=== PATIENT | male | born 1945 | race Caucasian/White ===

== ENCOUNTER 2023-06-04 12:37 | Inpatient (IN) ==
[2023-06-04 13:29] LABS: Albumin 3.2 g/dL (3.2-5.2); Albumin/Globulin Ratio 1.4 (1-3); Calcium 8.5 mg/dL (8.6-10.3); Creatinine, Serum 2.12 mg/dL (0.67-1.17); Globulin 2.3 g/dL (2-4); Potassium 4.4 mmol/L (3.5-5.0); Total Bilirubin 1.3 mg/dL (0.2-1.0); Total Protein 5.5 g/dL (6.4-8.9); eGFR CKD-EPI 31.3 (>60)
[2023-06-04 13:36] LABS: Hematocrit 16.5 % (38-53); Hemoglobin 5.8 g/dL (13.2-16.3); Mean Corpuscular Hemoglobin 31.7 pg (27-33); Mean Corpuscular Hgb Conc 35.2 g/dL (31-36); Mean Corpuscular Volume 90.1 fL (80-97); Mean Platelet Volume 9.8 fL (7.5-11.2); Platelet Count 61 10^3/uL (150-450); Red Blood Count 1.83 10^6/uL (4.06-5.63); Red Cell Distribution Width 19.7 % (12-17); White Blood Count 3.4 10^3/uL (3.6-10.2)
[2023-06-04 13:51] LABS: Urine Appearance Clear; Urine Bilirubin Negative (Negative); Urine Blood Negative (Negative); Urine Color Yellow; Urine Glucose Negative (Negative); Urine Ketones Negative (Negative); Urine Nitrite Negative (Negative); Urine Protein 1+(30 mg/dL) (Negative); Urine Specific Gravity 1.013 (1.002-1.030); Urine Urobilinogen Negative (Negative)
[2023-06-04 13:55] LABS: Urine Bacteria Absent (Absent); Urine Red Blood Cell Trace(0-2/hpf) (Absent); Urine Squamous Epithelial Cell Present (Absent); Urine White Blood Cell Trace(0-5/hpf) (Absent)
[2023-06-04 14:08] LABS: ABS Nucleated RBC 0.02 10^3/ul; Nucleated Red Blood Cells % 0.7 %/100WBC (0.0-0.8)
[2023-06-04 14:10] LABS: Hypochromasia 1+; Large Platelets Present; Microcytosis 1+; Polychromasia 2+; Tear Drop Cells 1+
[2023-06-04 14:47] LABS: Ferritin 3179.4 ng/mL (24-336)
[2023-06-04 15:35] LABS: ABS Neutrophils 2.6 10^3/ul (1.5-7.6)
[2023-06-04 15:36] LABS: ABS Lymphocytes 0.7 10^3/ul (1.0-4.8)
[2023-06-04] MEDS: HYDROcodone/ACETAMIN 5/325 mg TAB PO PRN (16:21)
[2023-06-04] MEDS: Furosemide 20 mg/2 ml IV VIAL IV SLOW PU ONE (18:45)
[2023-06-04] MEDS: Cefepime 2 GM in Dextrose 2 GM/50 ML BAG IV SCH ×2 (20:00→23:32)
[2023-06-04] MEDS: Acetaminophen IV 1 GM/100ML 1,000 MG/100 ML BAG IV PRN (20:42)
[2023-06-05 07:23] LABS: ALT 35 U/L (7-52); Albumin 3.4 g/dL (3.2-5.2); Albumin/Globulin Ratio 1.5 (1-3); Alkaline Phosphatase 74 U/L (35-149); Anion Gap 12 mmol/L (2-16); Blood Urea Nitrogen 44 mg/dL (6-24); CO2 Carbon Dioxide 22 mmol/L (22-32); Chloride 97 mmol/L (101-111); Creatinine, Serum 2.13 mg/dL (0.67-1.17); Globulin 2.2 g/dL (2-4); Glucose 90 mg/dL (70-100); Sodium 131 mmol/L (135-145); Total Bilirubin 1.7 mg/dL (0.2-1.0); Total Protein 5.6 g/dL (6.4-8.9); eGFR CKD-EPI 31.1 (>60)
[2023-06-05 08:56] LABS: Hematocrit 19.5 % (38-53); Hemoglobin 6.9 g/dL (13.2-16.3); Mean Corpuscular Hgb Conc 35.4 g/dL (31-36); Mean Corpuscular Volume 87.4 fL (80-97); Mean Platelet Volume 8.7 fL (7.5-11.2); Platelet Count 51 10^3/uL (150-450); Red Blood Count 2.23 10^6/uL (4.06-5.63); Red Cell Distribution Width 17.7 % (12-17); White Blood Count 8.9 10^3/uL (3.6-10.2)
[2023-06-05 09:38] LABS: ABS Lymphocytes 0.5 10^3/uL (1.0-4.8); ABS Monocytes 0.3 10^3/uL (0.0-1.1); ABS Nucleated RBC 0.03 10^3/ul; Anisocytosis 1+; Eosinophil % 0.1 %; Lymphocyte % 6.1 %; Nucleated Red Blood Cells % 0.3 %/100WBC (0.0-0.8); Polychromasia 1+
[2023-06-05 10:05] LABS: Magnesium 1.8 mg/dL (1.9-2.7); Phosphorus 4.2 mg/dL (2.5-5.0); Uric Acid 10.3 mg/dL (4.4-7.6)
[2023-06-05 10:14] LABS: Albumin 3.4 g/dL (3.2-5.2); Albumin/Globulin Ratio 1.5 (1-3); Direct Bilirubin 0.6 mg/dL (0.03-0.18); Globulin 2.2 g/dL (2-4); Indirect Bilirubin 0.9 mg/dL (0.3-1.0); Total Bilirubin 1.5 mg/dL (0.2-1.0); Total Protein 5.6 g/dL (6.4-8.9)
[2023-06-05] MEDS: Furosemide 20 mg/2 ml IV VIAL IV SLOW PU ONE ×3 (10:42→17:24)
[2023-06-05] MEDS ORDERED: Sulfur Hexaflouride MICROSPHR 25 MG VIAL ONE (10:55)
[2023-06-05 11:36] LABS: Ferritin 4395.2 ng/mL (24-336)
[2023-06-05] MEDS: Magnesium Sulfate 2 gm BAG 2 GM/50 ML BAG IVPB ONE (12:09)
[2023-06-05] MEDS: Albuterol/Ipratropium NEB.SOL (2.5/0.5 MG) 3 ML NEB.SOLN INH PRN (15:42)
[2023-06-05 15:46] LABS: PCO2 Arterial 31 mmHg (35-45); PO2 Arterial 72 mmHg (80-100)
[2023-06-05 15:46] LABS: Urine Appearance Clear; Urine Bilirubin Negative (Negative); Urine Blood Negative (Negative); Urine Color Yellow; Urine Glucose Negative (Negative); Urine Ketones Negative (Negative); Urine Nitrite Negative (Negative); Urine Protein 1+ (>=30 mg/dL) (Negative); Urine Specific Gravity 1.017 (1.002-1.030); Urine Urobilinogen Negative (Negative); Urine pH 5.5 (5.0-8.0)
[2023-06-05 15:52] LABS: Urine Bacteria Absent /HPF (Absent); Urine Red Blood Cell Trace(0-2/hpf) /HPF (0-Trace); Urine White Blood Cell Trace(0-5/hpf) /HPF (0-Trace)
[2023-06-05 15:56] LABS: Hematocrit 26.3 % (38-53); Mean Corpuscular Hemoglobin 30.2 pg (27-33); Mean Corpuscular Hgb Conc 34.2 g/dL (31-36); Mean Corpuscular Volume 88.2 fL (80-97); Mean Platelet Volume 9.3 fL (7.5-11.2); Platelet Count 79 10^3/uL (150-450); Red Blood Count 2.98 10^6/uL (4.06-5.63); Red Cell Distribution Width 16.9 % (12-17)
[2023-06-05 16:13] LABS: ALT 39 U/L (7-52); AST 58 U/L (13-39); Albumin 3.7 g/dL (3.2-5.2); Albumin/Globulin Ratio 1.5 (1-3); Alkaline Phosphatase 78 U/L (35-149); Anion Gap 10 mmol/L (2-16); Blood Urea Nitrogen 46 mg/dL (6-24); CO2 Carbon Dioxide 26 mmol/L (22-32); CRP High Sensitivity > 80.00 mg/L (<2.00); Calcium 8.4 mg/dL (8.6-10.3); Chloride 94 mmol/L (101-111); Creatinine, Serum 2.25 mg/dL (0.67-1.17); Globulin 2.5 g/dL (2-4); Glucose 94 mg/dL (70-100); Potassium 4.7 mmol/L (3.5-5.0); Sodium 130 mmol/L (135-145); Total Bilirubin 1.7 mg/dL (0.2-1.0); Total Protein 6.2 g/dL (6.4-8.9); eGFR CKD-EPI 29.1 (>60)
[2023-06-05 16:56] LABS: C Reactive Protein 131.64 mg/L (<8.01)
[2023-06-05 17:00] LABS: C Reactive Protein 150.83 mg/L (<8.01)
[2023-06-05 17:04] LABS: ABS Basophils 0.1 10^3/uL (0.0-0.1); ABS Lymphocytes 0.6 10^3/uL (1.0-4.8); ABS Monocytes 0.4 10^3/uL (0.0-1.1); ABS Neutrophils 15.9 10^3/uL (1.5-7.6); ABS Nucleated RBC 0.08 10^3/ul; Anisocytosis 1+; Lymphocyte % 3.7 %; Nucleated Red Blood Cells % 0.5 %/100WBC (0.0-0.8); Polychromasia 1+
[2023-06-05 17:27] LABS: C Reactive Protein 228.87 mg/L (<8.01)
[2023-06-06 06:59] LABS: Albumin 3.1 g/dL (3.2-5.2); Albumin/Globulin Ratio 1.4 (1-3); Calcium 7.7 mg/dL (8.6-10.3); Creatinine, Serum 2.04 mg/dL (0.67-1.17); Direct Bilirubin 0.7 mg/dL (0.03-0.18); Globulin 2.2 g/dL (2-4); Indirect Bilirubin 1.2 mg/dL (0.3-1.0); Magnesium 2.1 mg/dL (1.9-2.7); Potassium 3.9 mmol/L (3.5-5.0); Total Bilirubin 1.9 mg/dL (0.2-1.0); Total Protein 5.3 g/dL (6.4-8.9); eGFR CKD-EPI 32.7 (>60)
[2023-06-06 07:03] LABS: Hematocrit 20.4 % (38-53); Hemoglobin 7.3 g/dL (13.2-16.3); Mean Corpuscular Hemoglobin 31.1 pg (27-33); Mean Corpuscular Hgb Conc 35.5 g/dL (31-36); Mean Corpuscular Volume 87.7 fL (80-97); Red Blood Count 2.33 10^6/uL (4.06-5.63); Red Cell Distribution Width 17.3 % (12-17); White Blood Count 8.7 10^3/uL (3.6-10.2)
[2023-06-06] MEDS ORDERED: Polyethylene Glycol 3350 17 GM PACKET PO PRN (07:25)
[2023-06-06 09:13] LABS: ABS Lymphocytes 0.4 10^3/uL (1.0-4.8); ABS Monocytes 0.3 10^3/uL (0.0-1.1); ABS Nucleated RBC 0.01 10^3/ul; Lymphocyte % 4.4 %; Mean Platelet Volume 9.3 fL (7.5-11.2); Nucleated Red Blood Cells % 0.1 %/100WBC (0.0-0.8); Platelet Count 41 10^3/uL (150-450); Polychromasia 2+
[2023-06-06] MEDS: Senna TAB 8.6 mg TAB PO SCH (11:04)
[2023-06-06] MEDS: Lidocaine PATCH 4% TOPICAL SCH (11:04)
[2023-06-06] MEDS: cefTRIAXone 2 gm/50 mL D5W 2 GM/50 ML BAG IV SCH (11:07)
[2023-06-06] MEDS ORDERED: fentaNYL 100 mcg/2 ml 50 MCG/ML VIAL ONE (14:54)
[2023-06-06] MEDS ORDERED: Naloxone 0.4 mg VIAL 0.4 mg/ml 1 ml VIAL ONE (14:54)
[2023-06-06] MEDS ORDERED: Midazolam 5 mg/5 ml VIAL 1 mg/ml 5 ml VIAL (5 mg) ONE (14:54)
[2023-06-06] MEDS ORDERED: Flumazenil 0.5 mg/5 ml 0.1 MG/ML 5 ml VIAL ONE (14:54)
[2023-06-06] MEDS: Midazolam 10 mg/10 ml VIAL 1 mg/ml 10 ml VIAL (10 mg) IV SLOW PU ONE (18:30)
[2023-06-06] MEDS: fentaNYL 100 mcg/2 ml 50 MCG/ML VIAL IV SLOW PU ONE (18:30)
[2023-06-07 05:58] LABS: Calcium 7.9 mg/dL (8.6-10.3); Creatinine, Serum 1.6 mg/dL (0.67-1.17); Magnesium 2.2 mg/dL (1.9-2.7); Potassium 3.7 mmol/L (3.5-5.0); eGFR CKD-EPI 43.8 (>60)
[2023-06-07 08:24] LABS: Hematocrit 21.4 % (38-53); Hemoglobin 7.5 g/dL (13.2-16.3); Mean Corpuscular Volume 88.5 fL (80-97); Mean Platelet Volume 9.8 fL (7.5-11.2); Platelet Count 35 10^3/uL (150-450); Red Blood Count 2.41 10^6/uL (4.06-5.63); Red Cell Distribution Width 17.6 % (12-17)
[2023-06-07 08:41] LABS: ABS Lymphocytes 0.2 10^3/uL (1.0-4.8); ABS Monocytes 0.1 10^3/uL (0.0-1.1); ABS Neutrophils 7.6 10^3/uL (1.5-7.6); ABS Nucleated RBC 0.01 10^3/ul; Anisocytosis 1+; Lymphocyte % 2.9 %; Nucleated Red Blood Cells % 0.1 %/100WBC (0.0-0.8)
[2023-06-08 06:12] LABS: Hematocrit 19.6 % (38-53); Mean Corpuscular Hemoglobin 31.2 pg (27-33); Mean Corpuscular Hgb Conc 35.5 g/dL (31-36); Mean Corpuscular Volume 87.9 fL (80-97); Mean Platelet Volume 9.4 fL (7.5-11.2); Platelet Count 32 10^3/uL (150-450); Red Blood Count 2.24 10^6/uL (4.06-5.63); Red Cell Distribution Width 17.1 % (12-17); White Blood Count 5.2 10^3/uL (3.6-10.2)
[2023-06-08 06:18] LABS: Albumin/Globulin Ratio 1.3 (1-3); Calcium 7.9 mg/dL (8.6-10.3); Creatinine, Serum 1.32 mg/dL (0.67-1.17); Direct Bilirubin 0.5 mg/dL (0.03-0.18); Globulin 2.4 g/dL (2-4); Indirect Bilirubin 0.8 mg/dL (0.3-1.0); Magnesium 2.2 mg/dL (1.9-2.7); Potassium 4.1 mmol/L (3.5-5.0); Total Bilirubin 1.3 mg/dL (0.2-1.0); Total Protein 5.4 g/dL (6.4-8.9); eGFR CKD-EPI 55.2 (>60)
[2023-06-08 07:55] LABS: ABS Lymphocytes 0.3 10^3/uL (1.0-4.8); ABS Monocytes 0.1 10^3/uL (0.0-1.1); ABS Neutrophils 4.8 10^3/uL (1.5-7.6); Anisocytosis 1+; Eosinophil % 0.1 %; Lymphocyte % 5.3 %; Nucleated Red Blood Cells % 0.1 %/100WBC (0.0-0.8)
[2023-06-08 09:15] LABS: Free T3 1.74 pg/mL (2.5-3.9); Free T4 0.49 ng/dL (0.61-1.12)
[2023-06-08 09:41] LABS: TSH Ultra Thyroid Stim Horm 62.43 mcIU/mL (0.34-5.60)
[2023-06-08] MEDS: Furosemide 40 mg/4 ml IV VIAL IV SLOW PU ONE (09:55)
[2023-06-08] MEDS: LEVOTHYROXINE IV SCH (11:59)
[2023-06-08] MEDS: D5W IV SCH (11:59)
[2023-06-08] MEDS: Levothyroxine 100 MCG/5 ML VIAL IV ONE (12:50)
[2023-06-09 06:00] LABS: Hematocrit 22.8 % (38-53); Mean Corpuscular Hemoglobin 30.6 pg (27-33); Mean Corpuscular Hgb Conc 34.9 g/dL (31-36); Mean Corpuscular Volume 87.5 fL (80-97); Mean Platelet Volume 10.6 fL (7.5-11.2); Platelet Count 36 10^3/uL (150-450); Red Blood Count 2.61 10^6/uL (4.06-5.63); White Blood Count 4.9 10^3/uL (3.6-10.2)
[2023-06-09 06:18] LABS: C Reactive Protein 178.11 mg/L (<8.01); Calcium 7.8 mg/dL (8.6-10.3); Creatinine, Serum 1.18 mg/dL (0.67-1.17); Magnesium 1.9 mg/dL (1.9-2.7); eGFR CKD-EPI 63.2 (>60)
[2023-06-09 10:16] LABS: Osmolality Serum 285 mOsm/kg (275-295)
[2023-06-10 05:49] LABS: Hematocrit 22.1 % (38-53); Hemoglobin 7.7 g/dL (13.2-16.3); Mean Corpuscular Hemoglobin 30.8 pg (27-33); Mean Corpuscular Hgb Conc 34.9 g/dL (31-36); Mean Corpuscular Volume 88.1 fL (80-97); Mean Platelet Volume 8.9 fL (7.5-11.2); Platelet Count 31 10^3/uL (150-450); Red Blood Count 2.51 10^6/uL (4.06-5.63); Red Cell Distribution Width 16.7 % (12-17); White Blood Count 4.9 10^3/uL (3.6-10.2)
[2023-06-10 06:07] LABS: Albumin 2.9 g/dL (3.2-5.2); Albumin/Globulin Ratio 1.2 (1-3); Creatinine, Serum 1.11 mg/dL (0.67-1.17); Direct Bilirubin 0.6 mg/dL (0.03-0.18); Globulin 2.5 g/dL (2-4); Indirect Bilirubin 0.7 mg/dL (0.3-1.0); Magnesium 1.9 mg/dL (1.9-2.7); Potassium 4.1 mmol/L (3.5-5.0); Total Bilirubin 1.3 mg/dL (0.2-1.0); Total Protein 5.4 g/dL (6.4-8.9)
[2023-06-10 08:58] LABS: ABS Lymphocytes 0.3 10^3/uL (1.0-4.8); ABS Monocytes 0.2 10^3/uL (0.0-1.1); ABS Neutrophils 4.3 10^3/uL (1.5-7.6); Eosinophil % 0.2 %; Lymphocyte % 7.1 %; Nucleated Red Blood Cells % 0.1 %/100WBC (0.0-0.8); RBC Morphology Normal (Normal)
[2023-06-11 06:34] LABS: Hematocrit 22.3 % (38-53); Hemoglobin 7.8 g/dL (13.2-16.3); Mean Corpuscular Hemoglobin 30.8 pg (27-33); Mean Corpuscular Hgb Conc 35.1 g/dL (31-36); Mean Corpuscular Volume 87.7 fL (80-97); Mean Platelet Volume 8.9 fL (7.5-11.2); Platelet Count 39 10^3/uL (150-450); Red Blood Count 2.54 10^6/uL (4.06-5.63); Red Cell Distribution Width 16.7 % (12-17); White Blood Count 4.5 10^3/uL (3.6-10.2)
[2023-06-11 06:58] LABS: ABS Lymphocytes 0.3 10^3/uL (1.0-4.8); ABS Monocytes 0.1 10^3/uL (0.0-1.1); ABS Nucleated RBC 0.01 10^3/ul; Eosinophil % 0.3 %; Lymphocyte % 7.2 %; Nucleated Red Blood Cells % 0.2 %/100WBC (0.0-0.8); Polychromasia 1+
[2023-06-11 07:34] LABS: Calcium 8.1 mg/dL (8.6-10.3); Creatinine, Serum 1.01 mg/dL (0.67-1.17); Potassium 4.3 mmol/L (3.5-5.0); eGFR CKD-EPI 76.1 (>60)
[2023-06-11 15:32] LABS: Body Fluid Total Nucleated 469 /mcL
[2023-06-11 15:57] LABS: Body Fluid Mono 31 %; Body Fluid Total Cells Counted 100
[2023-06-11 16:01] LABS: Body Fluid Appearance Bloody; Body Fluid Source Synovial Fluid
[2023-06-11 16:02] LABS: Body Fluid Color Red
[2023-06-12 05:59] LABS: Calcium 8.1 mg/dL (8.6-10.3); Creatinine, Serum 0.91 mg/dL (0.67-1.17); Magnesium 1.8 mg/dL (1.9-2.7); Potassium 4.5 mmol/L (3.5-5.0); eGFR CKD-EPI 86.3 (>60)
[2023-06-12 07:05] LABS: Hemoglobin 7.8 g/dL (13.2-16.3); Mean Corpuscular Hgb Conc 35.5 g/dL (31-36); Mean Corpuscular Volume 87.5 fL (80-97); Mean Platelet Volume 8.5 fL (7.5-11.2); Platelet Count 44 10^3/uL (150-450); Red Blood Count 2.52 10^6/uL (4.06-5.63); Red Cell Distribution Width 16.5 % (12-17); White Blood Count 4.4 10^3/uL (3.6-10.2)
[2023-06-12] MEDS: cefTRIAXone 2 GM ADDV.VIAL 2 GM in NS 0.9% 100 ml BAG 100 ML IV SCH (08:49)
[2023-06-12] MEDS: Magnesium Hydroxide LIQ 30 ML UDC PO SCH (08:51)
[2023-06-12] MEDS ORDERED: cefTRIAXone 1 GM Q24H (ADVAN) IVPB SCH (09:00)
[2023-06-12 09:27] LABS: Anisocytosis 1+
[2023-06-12 09:29] LABS: ABS Lymphocytes 0.6 10^3/uL (1.0-4.8); ABS Monocytes 0.4 10^3/uL (0.0-1.1); ABS Neutrophils 3.5 10^3/uL (1.5-7.6)
[2023-06-13 04:11] LABS: Rapid COVID-19 Molecular Undetected (Undetected)
[2023-06-13 07:40] LABS: Hematocrit 22.4 % (38-53); Hemoglobin 7.8 g/dL (13.2-16.3); Mean Corpuscular Hemoglobin 30.5 pg (27-33); Mean Corpuscular Hgb Conc 34.6 g/dL (31-36); Mean Corpuscular Volume 88.1 fL (80-97); Mean Platelet Volume 8.5 fL (7.5-11.2); Platelet Count 59 10^3/uL (150-450); Red Blood Count 2.55 10^6/uL (4.06-5.63); Red Cell Distribution Width 16.7 % (12-17); White Blood Count 5.1 10^3/uL (3.6-10.2)
[2023-06-13 07:54] LABS: Calcium 8.2 mg/dL (8.6-10.3); Creatinine, Serum 0.92 mg/dL (0.67-1.17); eGFR CKD-EPI 85.1 (>60)
[2023-06-13 08:37] LABS: ABS Lymphocytes 0.5 10^3/uL (1.0-4.8); ABS Monocytes 0.3 10^3/uL (0.0-1.1); ABS Neutrophils 4.2 10^3/uL (1.5-7.6); ABS Nucleated RBC 0.01 10^3/ul; Anisocytosis 1+; Eosinophil % 0.3 %; Lymphocyte % 10.4 %; Nucleated Red Blood Cells % 0.2 %/100WBC (0.0-0.8)
[2023-06-15 14:02] LABS: B. burgdorferi PCR Negative (Negative); B. garinii/B. afzellii PCR Negative (Negative); Lyme Disease Source SYNOVIAL FLUID
== END 2023-06-14 12:50 | DRG 871 ==
LOC: CHOA 12:37 → SUATTDRO 16:12 → MEDTELE 16:12
PROVIDERS: ADMIT Internal Medicine Medical Oncology; ATTEND Internal Medicine

== ENCOUNTER 2023-08-23 13:23 | Inpatient (IN) ==
[2023-08-23 14:49] LABS: Hematocrit 19.3 % (38-53); Hemoglobin 6.5 g/dL (13.2-16.3); Mean Corpuscular Hemoglobin 32.9 pg (27-33); Mean Corpuscular Hgb Conc 33.6 g/dL (31-36); Mean Corpuscular Volume 97.9 fL (80-97); Red Blood Count 1.98 10^6/uL (4.06-5.63); Red Cell Distribution Width 26.1 % (12-17)
[2023-08-23 15:11] LABS: Albumin 3.2 g/dL (3.2-5.2); Albumin/Globulin Ratio 1.2 (1-3); Calcium 8.2 mg/dL (8.6-10.3); Creatinine, Serum 1.81 mg/dL (0.67-1.17); Globulin 2.6 g/dL (2-4); Potassium 5.5 mmol/L (3.5-5.0); Total Bilirubin 1.1 mg/dL (0.2-1.0); Total Protein 5.8 g/dL (6.4-8.9); eGFR CKD-EPI 37.6 (>60)
[2023-08-23 15:24] LABS: ABS Basophils 0.1 10^3/uL (0.0-0.1); ABS Lymphocytes 0.4 10^3/uL (1.0-4.8); ABS Monocytes 0.3 10^3/uL (0.0-1.1); ABS Neutrophils 3.2 10^3/uL (1.5-7.6); ABS Nucleated RBC 0.05 10^3/ul; Anisocytosis 2+; Basophilic Stippling 1+; Eosinophil % 0.2 %; Macrocytosis 1+; Microcytosis 1+; Nucleated Red Blood Cells % 1.2 %/100WBC (0.0-0.8); Platelet Count Platelets clumped. 10^3/uL (150-450); Smudge Cells Present
[2023-08-23 17:35] LABS: High Sensitivity Troponin 1 Hr 17 pg/mL (<20)
[2023-08-23 18:32] LABS: Hemoglobin 7.4 g/dL (13.2-16.3); Mean Corpuscular Hemoglobin 32.2 pg (27-33); Mean Corpuscular Hgb Conc 33.6 g/dL (31-36); Mean Corpuscular Volume 95.7 fL (80-97); Mean Platelet Volume 8.8 fL (7.5-11.2); Platelet Count 221 10^3/uL (150-450); Red Blood Count 2.29 10^6/uL (4.06-5.63); Red Cell Distribution Width 23.4 % (12-17); White Blood Count 4.4 10^3/uL (3.6-10.2)
[2023-08-23] MEDS: Furosemide 20 mg/2 ml IV VIAL IV ONE (18:40)
[2023-08-23] MEDS: Furosemide 20 mg/2 ml IV VIAL IV SLOW PU ONE (19:45)
[2023-08-23] MEDS ORDERED: Polyethylene Glycol 3350 17 GM PACKET PO PRN (21:09)
[2023-08-23] MEDS ORDERED: HYDROcodone/ACETAMIN 5/325 mg TAB PO PRN (21:09)
[2023-08-23 22:12] LABS: C Reactive Protein 87.32 mg/L (<8.01)
[2023-08-23] MEDS: Enoxaparin 30 MG/0.3 ML SYR SUBCUT SCH (22:48)
[2023-08-23] MEDS: Azithromycin 500 mg/250 ml NS 500 MG/250 ML BAG IVPB ONE (23:27)
[2023-08-24] MEDS: Nystatin TOP POWDER 15 GM BTL TOPICAL SCH (01:12)
[2023-08-24 11:27] LABS: Urine Appearance Turbid; Urine Bilirubin Negative (Negative); Urine Blood Negative (Negative); Urine Color Yellow; Urine Glucose Negative (Negative); Urine Ketones Negative (Negative); Urine Nitrite Negative (Negative); Urine Protein 1+ (>=30 mg/dL) (Negative); Urine Urobilinogen 1+ (Negative); Urine pH 5.5 (5.0-8.0)
[2023-08-24 11:42] LABS: Urine Bacteria 1+ /HPF (Absent); Urine Red Blood Cell 2+(6-10/hpf) /HPF (0-Trace); Urine Squamous Epithelial Cell Present /HPF (Absent); Urine Transitional Epithelial Present /HPF (Absent); Urine White Blood Cell 3+(>20/hpf) /HPF (0-Trace)
[2023-08-24] MEDS: cefTRIAXone 1 gm/50 mL D5W 1 GM/50 ML BAG IV SCH (20:33)
[2023-08-24] MEDS: Azithromycin 500 mg/250 ml NS 500 MG/250 ML BAG IVPB SCH (22:12)
[2023-08-25 06:33] LABS: Hematocrit 21.1 % (38-53); Hemoglobin 7.2 g/dL (13.2-16.3); Mean Corpuscular Hemoglobin 32.5 pg (27-33); Mean Corpuscular Hgb Conc 34.2 g/dL (31-36); Mean Platelet Volume 9.1 fL (7.5-11.2); Platelet Count 172 10^3/uL (150-450); Red Blood Count 2.22 10^6/uL (4.06-5.63); Red Cell Distribution Width 23.9 % (12-17)
[2023-08-25 06:57] LABS: ABS Lymphocytes 0.4 10^3/uL (1.0-4.8); ABS Monocytes 0.3 10^3/uL (0.0-1.1); ABS Neutrophils 3.3 10^3/uL (1.5-7.6); ABS Nucleated RBC 0.03 10^3/ul; Eosinophil % 0.1 %; Lymphocyte % 9.1 %; Nucleated Red Blood Cells % 0.7 %/100WBC (0.0-0.8)
[2023-08-25 07:17] LABS: Calcium 7.8 mg/dL (8.6-10.3); Creatinine, Serum 1.69 mg/dL (0.67-1.17); Potassium 5.1 mmol/L (3.5-5.0); eGFR CKD-EPI 40.8 (>60)
[2023-08-25 13:01] VITALS: BP 124/67
== END 2023-08-25 16:30 | disposition home or self-care (01) | DRG 291 ==
LOC: ED 13:23 → EDHOLD 13:23 → SUATTDRO 19:24 → MED 21:00 → SUATTDRO 08-24 10:03
PROVIDERS: ADMIT Internal Medicine; ATTEND Internal Medicine